=== PATIENT | male | born 1975 | race Hispanic/Latino ===

== ENCOUNTER 2016-12-24 10:57 | Emergency (ER) | payer OTHER ==
[~2016-12-24] VITALS: Ht 175.3 cm; Wt 78.7 kg
[2016-12-24] MEDS ORDERED: VENTOLIN HFA18 GM IH (12:39)
[2016-12-24 13:18] VITALS: BP 120/78
[2016-12-27 12:37] LABS: CHLAMYDIA TRACHOMATIS NEGATIVE; NEISSERIA GONORRHOEAE NEGATIVE
== END 2016-12-24 13:18 | disposition home or self-care (01) ==
LOC: EME 10:57
DX: L72.8 Other follicular cysts of the skin and subcutaneous tissue (principal); Z20.2 Contact with and (suspected) exposure to infections with a predominantly sexual mode of transmission; Z11.3 Encounter for screening for infections with a predominantly sexual mode of transmission; J45.909 Unspecified asthma, uncomplicated; R35.0 Frequency of micturition; R30.0 Dysuria; N52.9 Male erectile dysfunction, unspecified; R36.9 Urethral discharge, unspecified; F17.200 Nicotine dependence, unspecified, uncomplicated; I10 Essential (primary) hypertension; Z91.14 Patient's other noncompliance with medication regimen; Z76.0 Encounter for issue of repeat prescription
CPT/HCPCS: 87491; 87591; 99281; 99284; J0696

== ENCOUNTER 2017-01-06 20:37 | Emergency (ER) | payer OTHER ==
[~2017-01-06] VITALS: Ht 175.3 cm; Wt 80.4 kg
[~2017-01-06 20:37] MED LIST: VENTOLIN HFA18 GM IH
[2017-01-06] MEDS ORDERED: ROBITUSSIN AC,T10 ML PO (21:41)
[2017-01-06] MEDS ORDERED: DOXYCYCLINE HY100 MG PO (21:42)
[2017-01-06 21:54] VITALS: BP 158/99
== END 2017-01-06 21:55 | disposition home or self-care (01) ==
LOC: EME 20:37
DX: J06.9 Acute upper respiratory infection, unspecified (principal); J45.21 Mild intermittent asthma with (acute) exacerbation; F17.200 Nicotine dependence, unspecified, uncomplicated
CPT/HCPCS: 71020; 94640; 99281; 99284; J8540